=== PATIENT | male | born 1990 | race American Indian/Alaskan Native ===

== ENCOUNTER 2017-06-01 23:10 | Emergency (ER) | payer OTHER ==
[2017-06-01 23:27] VITALS: TEMP 97.6
[2017-06-02] MEDS ORDERED: Aspirin 325 mg EC Tablets PO STA (00:21)
--- NOTE | 2017-06-02 00:28 | C.PDOC ---
History Of Present Illness 26 yo male c/o left sided chest pain since last night. Pt notes he only feels it when he is starting to "doze off", he feel like his "heart is falling" causing him to jump up. Notes some paresthesia. Symptoms resolve within a few minutes. H/o SOB a few months ago, states it was fully worked up and "they couldnt find anything." Admits to some anxiety. H/o holter monitor when younger which showed no conclusive findings. No family h/o early [place] or cardiac problems. Non smoker. No URI symptoms. No leg swelling. Time Seen by Provider: 06/02/17 00:11 Chief Complaint (Nursing): Medical Clearance History Per: Patient History/Exam Limitations: no limitations Onset/Duration Of Symptoms: Days (yesterday) Past Medical History Vital Signs: Last Vital Signs Temp 97.6 F 06/01/17 23:24 Pulse 72 06/02/17 01:03 Resp 16 06/02/17 01:03 BP 124/80 06/02/17 01:03 Pulse Ox 98 06/02/17 01:31 Family History: States: No Known Family Hx - Social History Hx Alcohol Use: Yes Hx Substance Use: No - Immunization History Hx Tetanus Toxoid Vaccination: No Hx Influenza Vaccination: No Hx Pneumococcal Vaccination: No Review Of Systems Except As Marked, All Systems Reviewed And Found Negative. Constitutional: Negative for: Fever Cardiovascular: Positive for: Chest Pain Respiratory: Negative for: SOB with Excertion Physical Exam - Physical Exam Appears: Well, Non-toxic, No Acute Distress, Other (speaking in full sentences) Skin: Normal Color, Warm, Dry Head: Atraumatic, Normacephalic Eye(s): bilateral: Normal Inspection, PERRL, EOMI Nose: Normal Oral Mucosa: Moist Throat: Normal Neck: Normal, Normal ROM, Supple Chest: Symmetrical Cardiovascular: Rhythm Regular Respiratory: Normal Breath Sounds Gastrointestinal/Abdominal: Normal Exam, Soft, No Tenderness Back: Normal Inspection Extremity: Normal ROM Neurological/Psych: Oriented x3, Normal Speech ED Course And Treatment - Laboratory Results Result Diagrams: 06/02/17 00:35 06/02/17 00:35 ECG: Interpreted By Me (Dr Yates), Viewed By Me ECG Rhythm: Sinus Rhythm Rate From EC O2 Sat by Pulse Oximetry: 98 - Radiology CXR: Interpreted by Me, Viewed By Me CXR Interpretation: Yes: No Acute Disease Progress Note: Aspirin ordered. On re-evaluation , pt is sleeping. no chest pain. NO sob. Pulse ox 98% . No tachycardia. The following discussion took place: the patient was told that an appropriate evaluation has been performed, and in my medical judgment there is currently no evidence of an immediate life- threatening or surgical condition. Discharge is therefore indicated at this time. The patient was advised that a small risk still exists that a serious condition could develop. The patient was instructed to arrange mandatory close follow-up with their physician (or with the referral physician given today) within 24 hours. If that doctor is not available, the patient was instructed to return to the Emergency Department. The patient was told to return to the Emergency Department immediately if the symptoms worsen. Case discussed with Dr Yates who evaluated EKG and labs and agreed uponplan andischarge. Disposition - Disposition Referrals: Zuleyka Ellis MD [Staff Provider] - Disposition: HOME/ ROUTINE Disposition Time: 01:29 Condition: STABLE Additional Instructions: Follow up with your primary medical doctor or clinic in 2-5 days for further evaluation. Return to the emergency department at any time if symptoms persist or worsen. Instructions: Chest Pain (ED) Forms: [employer] (Mauritian) - Clinical Impression Clinical Impression: Chest pain
[2017-06-02 00:38] LABS: BASO % 0.6 % (0.0-2.0); EOS # 0.1 K/uL (0.0-0.7); EOS % 1.6 % (0.0-4.0); HEMATOCRIT 41.6 % (35.0-51.0); LYMPH # 2.5 K/uL (1.0-4.3); LYMPH % 59.3 % (20.0-40.0); MEAN CORPUSCULAR HEMOGLOBIN 31.3 pg (27.0-31.0); MEAN CORPUSCULAR HGB CONC 34.4 g/dL (33.0-37.0); MEAN PLATELET VOLUME 7.2 fL (7.2-11.7); MONO # 0.5 K/uL (0.0-0.8); NRBC % 0.1 % (0.0-2.0); RED CELL DISTRIBUTION WIDTH 12.9 % (11.5-14.5); WHITE BLOOD COUNT 4.2 K/uL (4.8-10.8)
[2017-06-02 00:48] LABS: CHLORIDE 96 mmol/L (98-107); POTASSIUM 4.4 mmol/L (3.6-5.2); SODIUM 136 mmol/L (132-148)
[2017-06-02 00:50] LABS: BILIRUBIN,TOTAL 0.5 mg/dL (0.2-1.3); GFR AFRICAN-AMERICAN > 60
[2017-06-02 00:51] LABS: ALB/GLOB RATIO 1.5 (1.0-2.1); ALKALINE PHOSPHATASE 44 U/L (38-126); ALT/SGPT 36 U/L (21-72); AST/SGOT 22 U/L (17-59); BLOOD UREA NITROGEN 19 mg/dL (9-20); CALCIUM 9.6 mg/dl (8.6-10.4); CARBON DIOXIDE 27 mmol/L (22-30); GLUCOSE,RANDOM 86 mg/dL (75-110)
[2017-06-02 00:55] LABS: RBC URINE 5 /hpf (0-3); URINE BILIRUBIN NEGATIVE (NEGATIVE); URINE BLOOD NEGATIVE (NEGATIVE); URINE COLOR DARK YELLOW (YELLOW); URINE GLUCOSE (UA) NORMAL (Normal); URINE KETONE NEGATIVE (NEGATIVE); URINE LEUKOCYTE ESTERASE NEG Leu/uL (Negative); URINE PROTEIN NEGATIVE (NEGATIVE); URINE UROBILINOGEN NORMAL mg/dL (0.2-1.0); WBC URINE 3 /hpf (0-5)
[2017-06-02 01:04] VITALS: BP 124/80; PULSE 72; RESP 16
[2017-06-02 01:31] VITALS: O2SAT 98
--- NOTE | 2017-06-02 09:33 | RAD ---
HISTORY: chest pain COMPARISON: None available. TECHNIQUE: Chest PA and lateral FINDINGS: LUNGS: No focal consolidation. Please note that chest x-ray has limited sensitivity for the detection of pulmonary masses. PLEURA: No significant pleural effusion identified. No definite pneumothorax . CARDIOVASCULAR: The cardiomediastinal silhouette appears within normal limits of size. OSSEOUS STRUCTURES: No acute osseous abnormality identified. VISUALIZED UPPER ABDOMEN: Unremarkable. OTHER FINDINGS: None. IMPRESSION: No focal consolidation, significant pleural effusion, or definite pneumothorax identified.
--- NOTE | 2017-06-03 18:07 | CARD ---
APPROVED REPORT EKG Measurement Heart [id number] <Conclusion> Normal sinus rhythm ST elevation, probably due to early repolarization Borderline ECG
== END 2017-06-02 01:38 | disposition home or self-care (01) ==
LOC: C.ER 23:10
DX: R07.9 Chest pain, unspecified (principal)